=== PATIENT | female | born 1985 | race Two or more races ===

== ENCOUNTER 2023-10-25 13:04 | Emergency (ER) | payer OTHER ==
[~2023-10-25] VITALS: Ht 160 cm; Wt 63.5 kg
[2023-10-25] MEDS ORDERED: PRENATAL + DHA1 EAC1 PO (13:59)
[2023-10-25 14:50] LABS: HEMATOCRIT 38.9 % (36.0-45.00); MEAN CELL VOLUME 85.7 fL (80.00-100.00); MEAN CORPUSCULAR HEMOGLOBIN 28.7 pg (27.00-32.0); MEAN CORPUSCULAR HGB CONC 33.4 g/dl (32.0-36.0); PLATELET COUNT 189 K/uL (150-450); RED BLOOD COUNT 4.54 M/uL (4.00-6.00); RED CELL DISTRIBUTION WIDTH 12.9 % (11.5-14.5)
[2023-10-25] MEDS ORDERED: METRONIDAZOLE500 MG PO (18:45)
[2023-10-25] MEDS ORDERED: IBU800 MG PO (18:45)
== END 2023-10-25 21:06 | disposition home or self-care (01) ==
LOC: ER 13:06 → EDBD 13:30 → ER 13:30
PROVIDERS: Emergency Medicine
DX: O03.9 Complete or unspecified spontaneous abortion without complication (principal)